=== PATIENT | female | born 1975 | race Caucasian/White ===

== ENCOUNTER 2019-02-16 19:19 | Inpatient (IN) | payer MEDICAID ==
[~2019-02-16] VITALS: Ht 152.4 cm; Wt 85.8 kg
[2019-02-16] MEDS ORDERED: SOD CHLORIDE 0.9% 1,000 ML IV STA (20:38)
[2019-02-16] MEDS ORDERED: HYDROmorphONE 1 MG/ML SYG IV STA (20:38)
[2019-02-16] MEDS ORDERED: ONDANSETRON 4 MG INJ IV STA (20:38)
[2019-02-16] MEDS ORDERED: HYDROmorphONE 2 MG/ML SYG IV STA (22:37)
[2019-02-16] MEDS ORDERED: ONDANSETRON 4 MG INJ IV PRN (23:30)
[2019-02-16] MEDS ORDERED: ACETAMINOPHEN 325 MG TAB PO PRN (23:30)
--- NOTE | 2019-02-16 23:57 | ERD ---
ER Documentation Chief Complaint Chief Complaint 10/10 LOWER BACK PAIN X 2 DAYS. HPI This is a 43-year-old male with pain is in the low back pain for 2 days. Pain is mild to moderate intensity he denies bowel or bladder incontinence but does have a history of back issues. Denies any trauma. Says she woke up and could not move essentially. She does have good motor strength, however she cannot support her weight. ROS All systems reviewed and are negative except as per history of present illness. Medications Home Meds No Active Prescriptions or Reported Meds Allergies Allergies: Coded Allergies: No Known Allergy (Unverified , 03/13/12) PMhx/Soc History of Surgery: No Anesthesia Reaction: No Hx Neurological Disorder: No Hx Respiratory Disorders: No Hx Cardiac Disorders: No Hx Psychiatric Problems: No Hx Miscellaneous Medical Probl: Yes (C SECTIONS) Hx Alcohol Use: No Hx Substance Use: No Hx Tobacco Use: No Smoking Status: Never smoker Physical Exam Vitals Vital Signs Date Temp Pulse Resp B/P (MAP) Pulse Ox O2 O2 Flow FiO2 Time Delivery Rate 02/16/19 97.7 68 19 125/73 96 Room Air 20:38 (90) 02/16/19 98.1 85 20 140/66 98 Room Air 20:01 (90) 02/16/19 98.1 88 20 154/68 98 19:22 (96) Physical Exam Const: No acute distress Head: Atraumatic Eyes: Normal Conjunctiva ENT: Normal External Ears, Nose and Mouth. Neck: Full range of motion. No meningismus. Resp: Clear to auscultation bilaterally Cardio: Regular rate and rhythm, no murmurs Abd: Soft, non tender, non distended. Normal bowel sounds Skin: No petechiae or rashes Back: No midline or flank tenderness Ext: No cyanosis, or edema Neur: Awake and alert Psych: Normal Mood and Affect Result Diagram: 02/16/19201402/16/192014 Results 24 hrs Laboratory Tests Test 02/16/19 20:15 02/16/19 20:29 02/16/19 21:13 White Blood Count 8.1 10^3/ul Red Blood Count 4.77 10^6/ul Hemoglobin 12.8 g/dl Hematocrit 39.3 % Mean Corpuscular Volume 82.4 fl Mean Corpuscular Hemoglobin 26.8 pg Mean Corpuscular 32.6 g/dl Hemoglobin Concent Red Cell Distribution Width 14.7 % Platelet Count 405 10^3/UL Mean Platelet Volume 10.6 fl Immature Granulocytes % 0.500 % Neutrophils % 58.8 % Lymphocytes % 30.6 % Monocytes % 9.0 % Eosinophils % 0.6 % Basophils % 0.5 % Nucleated Red Blood Cells % 0.0 /100WBC Immature Granulocytes # 0.040 10^3/ul Neutrophils # 4.7 10^3/ul Lymphocytes # 2.5 10^3/ul Monocytes # 0.7 10^3/ul Eosinophils # 0.1 10^3/ul Basophils # 0.0 10^3/ul Nucleated Red Blood Cells # 0.0 10^3/ul Sodium Level 141 mmol/L Potassium Level 3.5 mmol/L Chloride Level 106 mmol/L Carbon Dioxide Level 25 mmol/L Anion Gap 10 Blood Urea Nitrogen 11 mg/dl Creatinine 0.56 mg/dl Est Glomerular Filtrat > 60 mL/min Rate mL/min Glucose Level 99 mg/dl Calcium Level 9.7 mg/dl Total Bilirubin 0.5 mg/dl Direct Bilirubin 0.00 mg/dl Indirect Bilirubin 0.5 mg/dl Aspartate Amino Transf (AST/SGOT) 52 IU/L Alanine 67 IU/L Aminotransferase (ALT/SGPT) Alkaline Phosphatase 92 IU/L Total Protein 8.9 g/dl Albumin 4.7 g/dl Globulin 4.20 g/dl Albumin/Globulin Ratio 1.11 Urine Color YELLOW Urine Clarity SLIGHTLY CLOUDY Urine pH 6.0 Urine Specific [place] 1.025 Urine Ketones NEGATIVE mg/dL Urine Nitrite NEGATIVE mg/dL Urine Bilirubin NEGATIVE mg/dL Urine Urobilinogen 2+ mg/dL Urine Leukocyte Esterase NEGATIVE Gomez/ul Urine Microscopic RBC 6 /HPF Urine Microscopic WBC 1 /HPF Urine Squamous Epithelial Cells FEW /HPF Urine Bacteria FEW /HPF Urine Mucus MODERATE /HPF Urine Hemoglobin NEGATIVE mg/dL Urine Glucose NEGATIVE mg/dL Urine Total Protein NEGATIVE mg/dl POC Beta HCG, Qualitative NEGATIVE Current Medications Medications Dose Sig/Hoang Start Time Status Last (Trade) Ordered Route PRN Stop Time Admin Dose Reason Admin Sodium 1,000 ml @ Q1H STAT 02/16/19 DC 02/16/19 Chloride 1,000 mls/hr IV 20:38 02/16/19 20:45 21:37 1 mg ONCE STAT 02/16/19 DC 02/16/19 Hydromorphone IV 20:38 02/16/19 20:45 HCl 20:40 (Dilaudid) Ondansetron 4 mg ONCE STAT 02/16/19 DC 02/16/19 HCl (Zofran IV 20:38 02/16/19 20:45 Inj) 20:40 1 mg ONCE STAT 02/16/19 DC 02/16/19 Hydromorphone IV 22:37 02/16/19 23:07 HCl 22:38 (Dilaudid) Ondansetron 4 mg BRIDGE ORDER 02/16/19 HCl (Zofran PRN IV 23:30 Inj) NAUSEA/VOMITI 02/17/19 23:29 NG 650 mg ER BRIDGE 02/16/19 Acetaminophen PRN PO 23:30 (Tylenol .MILD PAIN 02/17/19 23:29 Tab) 1-3 OR TEMP Procedures/MDM Medical decision makin female with intractable back pain with central canal stenosis. Patient be admitted for intractable back pain for possible neurosurgical consult and pain control. Departure Diagnosis: Primary Impression: Back pain Back pain location: back pain in unspecified location Chronicity: unspecified Back pain laterality: unspecified Qualified Codes: M54.9 - Dorsalgia, unspecified Condition: Fair ESTRELLA MARIA Feb 16, 2019 23:57
[2019-02-17 00:28] VITALS: Ht 152.4 cm; Wt 85.8 kg
[2019-02-17] MEDS ORDERED: LORAZEPAM 2 MG INJ IV PRN (00:30)
[2019-02-17] MEDS ORDERED: ONDANSETRON 4 MG INJ IV PRN (00:30)
[2019-02-17] MEDS ORDERED: METOCLOPRAMIDE 10 MG INJ IV PRN (00:30)
[2019-02-17] MEDS ORDERED: MAGNESIUM HYDROXIDE 30ML CUP PO PRN (00:30)
[2019-02-17] MEDS ORDERED: HYDROCODONE/APAP (5/325) TAB PO PRN (00:30)
[2019-02-17] MEDS ORDERED: ALBUTEROL/IPRATROPIUM (NEB) 3 ML AMP HHN PRN (00:30)
[2019-02-17] MEDS ORDERED: ACETAMINOPHEN 325 MG TAB PO PRN (00:30)
[2019-02-17] MEDS ORDERED: NACL 0.9% 3 ML SYG IV SCH (00:30)
[2019-02-17] MEDS ORDERED: DOCUSATE SODIUM 100 MG CAP PO PRN (00:30)
[2019-02-17] MEDS ORDERED: hydrALAzine 20 MG INJ IV PRN (00:30)
[2019-02-17] MEDS ORDERED: NITROGLYCERIN (SL) 0.4 MG TAB SL PRN (00:30)
[2019-02-17 01:01] VITALS: BP 132/63; PULSE 63; RESP 18
[2019-02-17] MEDS: morphine 2 MG INJ IV PRN ×2 (01:07→08:42)
[2019-02-17] MEDS: SOD CHLORIDE 0.45% 1,000 ML IV SCH ×2 (01:07→13:21)
--- NOTE | 2019-02-17 02:43 | HP ---
DATE OF ADMISSION: 02/16/2019 IDENTIFICATION: This is a 43-year-old female. CHIEF COMPLAINT: Low back pain. HISTORY OF PRESENT ILLNESS: A 43-year-old female with no significant past medical history other than , who has been complaining of low back pain, symptoms began 2 days ago. She denies any tra swathi to the area. Apparently, when she woke up 2 days ago, she had difficulty moving. She still has good sensation and denies any bowel or bladder incontinence. She does have a history of low back shira n in the past. When she came in today to the ER, she had an imaging study performed. CT abdomen and pelvis that showed signs of 2 cysts in the left adnexa measuring about 5 cm. Uterus is anteverted a nd uterine fundus is tethered to the anterior abdominal wall, but more importantly, there were signs of degenerative disk disease in the lower lumbar spine with a large disk herniation at L4-L5 that res ults in severe central canal stenosis with compression of the thecal sac and an MRI of the lumbar spi ne has been ordered and is pending for further assessment. PAST MEDICAL HISTORY: As above. ALLERGIES: NO KNOWN DRUG ALLERGIES. HOME MEDICATIONS: Apparently none. PAST SURGICAL HISTORY: . SOCIAL HISTORY: Negative for smoking or drinking, or IV drug abuse. PHYSICAL EXAMINATION: VITAL SIGNS: T-max afebrile, pulse 88 to 68, respirations 20 to 19, blood pressure is 125 to 154 sys tolic over 73 to diastolic, saturating at 98% room air. GENERAL: The patient is lying in bed, answering questions appropriately, in mild distress. HEENT: Pupils equal, round, react to light. Extraocular muscles intact. NECK: Supple, no thyromegaly. LUNGS: Clear to auscultation bilaterally. CARDIOVASCULAR: S1, S2 heard. No rubs or gallops. ABDOMEN: Soft, nontender, nondistended. Normal bowel sounds. No rebound or guarding. MUSCULOSKELETAL: Decreased range of motion of her bilateral lower extremities secondary to pain. NEUROLOGIC: No apparent focal deficits. Sensation appears to be intact. Gait was not assessed. LABORATORIES: CBC is normal. Comprehensive metabolic panel was normal. We mentioned the imaging st udy results. Her UA shows negative leukocyte esterase, negative nitrites. ASSESSMENT AND PLAN: A 43-year-old female coming in with low back pain for 2 days with signs of disk herniation at L4-L5 causing severe central canal stenosis and compression of thecal sac. 1. Low back pain, again secondary to disk herniation L4-L5 region, so we will admit the patient. Pa in control medications, get PT and OT consult. Check TSH, A1c, lipid panel. Continue low-dose IV fl uids. 2. History of in the past. No present issues. Monitor for now. 3. Deep venous thrombosis prophylaxis, heparin subQ. Dictated By: NIC DAVIS/AIDE Conf#: [id number] DID#: [id number]
[2019-02-17 08:03] VITALS: BP 118/58; PULSE 57; RESP 20
[2019-02-17] MEDS: HEPARIN 5,000 UNIT/1 ML VIAL SC SCH ×2 (08:47→21:25)
[2019-02-17 13:54] VITALS: BP 122/60; PULSE 62; RESP 20
--- NOTE | 2019-02-17 14:03 | PN ---
Date/Time of Note Date/Time of Note DATE: 02/17/19 TIME: 14:02 Assessment/Plan VTE Prophylaxis Risk score (from Nsg)>0 risk: 1 SCD applied (from Nsg): Yes Pharmacological prophylaxis: heparin Lines/Catheters IV Catheter Type (from [facility]): Peripheral IV Assessment/Plan Hospital Course SUBJECTIVE: Continues to complain of lower back pain and pelvic pain. Denies any loss of sensation in the bilateral lower extremities. OBJECTIVE: Physical Exam General: Obese, 43 year-old female lying in bed in no apparent distress. HEENT: Normocephalic, atraumatic. Eyes: Anicteric sclerae, conjunctivae clear. ENT: Nasal septum midline, oral mucosa moist. Neck supple. Respiratory: Bilaterally clear breath sounds. No use of accessory muscles of respiration. No adventitious breath sounds. Cardiovascular: S1, S2 heard. Regular rate and rhythm. Abdomen: Soft and nondistended. Diffuse tenderness. Bowel sounds positive in all 4 quadrants. Genitourinary: Deferred. Extremities: No cyanosis, no clubbing, no edema. Peripheral pulses palpable. Neurologic: Cranial nerves II through XII grossly intact. The patient is awake, alert, and oriented. Equal strength in bilateral lower extremities. Skin: Normal skin turgor. No skin rashes. Labs & Vitals per chart ASSESSMENT & PLAN This is a 43-year-old female who denies any significant past medical history who is obese who came to the emergency room with chief complaint of lower back pain with CT of the abdomen and pelvis showing a large disc herniation at L4-L5 with resultant severe central canal stenosis with compression of thecal sac. 1. Low back pain. L4-L5 large disc herniation evident on CT scan. Obtain MRI of the lumbar spine. Continue pain control. 2. Obesity. BMI 37 kg/m. Advised weight reduction. 3. Fluids, electrolytes, and nutrition. Low-cholesterol diet. 4. DVT prophylaxis. Subcutaneous heparin. 5. Plan. Continue pain control. Obtain MRI of the lumbar spine. The patient was seen in collaboration with Dr. Amaro. Result Diagram: 02/16/19201402/16/192014 Results 24hrs Laboratory Tests Test 02/16/19 20:15 02/16/19 20:29 02/16/19 21:13 02/17/19 00:01 White Blood Count 8.1 Red Blood Count 4.77 Hemoglobin 12.8 Hematocrit 39.3 Mean Corpuscular 82.4 Volume Mean Corpuscular 26.8 L Hemoglobin Mean Corpuscular 32.6 Hemoglobin Concent Red Cell 14.7 H Distribution Width Platelet Count 405 Mean Platelet 10.6 H Volume Immature 0.500 H Granulocytes % Neutrophils % 58.8 Lymphocytes % 30.6 Monocytes % 9.0 Eosinophils % 0.6 Basophils % 0.5 Nucleated Red 0.0 Blood Cells % Immature 0.040 H Granulocytes # Neutrophils # 4.7 Lymphocytes # 2.5 Monocytes # 0.7 Eosinophils # 0.1 Basophils # 0.0 Nucleated Red 0.0 Blood Cells # Sodium Level 141 Potassium Level 3.5 Chloride Level 106 Carbon Dioxide 25 Level Anion Gap 10 Blood Urea 11 Nitrogen Creatinine 0.56 Est Glomerular > 60 Filtrat Rate mL/min Glucose Level 99 Calcium Level 9.7 Total Bilirubin 0.5 Direct Bilirubin 0.00 Indirect Bilirubin 0.5 Aspartate Amino 52 H Transf (AST/SGOT) Alanine 67 Aminotransferase ( ALT/SGPT) Alkaline 92 Phosphatase Total Protein 8.9 H Albumin 4.7 Globulin 4.20 H Albumin/Globulin 1.11 Ratio Urine Color YELLOW Urine Clarity SLIGHTLY CLOUDY A Urine pH 6.0 Urine Specific 1.025 [place] Urine Ketones NEGATIVE Urine Nitrite NEGATIVE Urine Bilirubin NEGATIVE Urine Urobilinogen 2+ H Urine Leukocyte NEGATIVE Esterase Urine Microscopic 6 H RBC Urine Microscopic 1 WBC Urine Squamous FEW Epithelial Cells Urine Bacteria FEW A Urine Mucus MODERATE Urine Hemoglobin NEGATIVE Urine Glucose NEGATIVE Urine Total NEGATIVE Protein POC Beta HCG, NEGATIVE Qualitative Free Thyroxine 0.88 Exam/Review of Systems Exam Vitals Vital Signs Date Temp Pulse Resp B/P (MAP) Pulse Ox O2 O2 Flow FiO2 Time Delivery Rate 02/17/19 98.5 62 20 122/60 93 13:54 (80) 02/17/19 Room Air 00:05 Intake and Output 02/16/19 02/16/19 02/17/19 1515:00 23:00 07:00 IntakeIntake Total 375 ml BalanceBalance 375 ml Results Results 24hrs Laboratory Tests Test 02/16/19 20:15 02/16/19 20:29 02/16/19 21:13 02/17/19 00:01 White Blood Count 8.1 Red Blood Count 4.77 Hemoglobin 12.8 Hematocrit 39.3 Mean Corpuscular 82.4 Volume Mean Corpuscular 26.8 L Hemoglobin Mean Corpuscular 32.6 Hemoglobin Concent Red Cell 14.7 H Distribution Width Platelet Count 405 Mean Platelet 10.6 H Volume Immature 0.500 H Granulocytes % Neutrophils % 58.8 Lymphocytes % 30.6 Monocytes % 9.0 Eosinophils % 0.6 Basophils % 0.5 Nucleated Red 0.0 Blood Cells % Immature 0.040 H Granulocytes # Neutrophils # 4.7 Lymphocytes # 2.5 Monocytes # 0.7 Eosinophils # 0.1 Basophils # 0.0 Nucleated Red 0.0 Blood Cells # Sodium Level 141 Potassium Level 3.5 Chloride Level 106 Carbon Dioxide 25 Level Anion Gap 10 Blood Urea 11 Nitrogen Creatinine 0.56 Est Glomerular > 60 Filtrat Rate mL/min Glucose Level 99 Calcium Level 9.7 Total Bilirubin 0.5 Direct Bilirubin 0.00 Indirect Bilirubin 0.5 Aspartate Amino 52 H Transf (AST/SGOT) Alanine 67 Aminotransferase ( ALT/SGPT) Alkaline 92 Phosphatase Total Protein 8.9 H Albumin 4.7 Globulin 4.20 H Albumin/Globulin 1.11 Ratio Urine Color YELLOW Urine Clarity SLIGHTLY CLOUDY A Urine pH 6.0 Urine Specific 1.025 [place] Urine Ketones NEGATIVE Urine Nitrite NEGATIVE Urine Bilirubin NEGATIVE Urine Urobilinogen 2+ H Urine Leukocyte NEGATIVE Esterase Urine Microscopic 6 H RBC Urine Microscopic 1 WBC Urine Squamous FEW Epithelial Cells Urine Bacteria FEW A Urine Mucus MODERATE Urine Hemoglobin NEGATIVE Urine Glucose NEGATIVE Urine Total NEGATIVE Protein POC Beta HCG, NEGATIVE Qualitative Free Thyroxine 0.88 Medications Medication Current Medications IV Flush (NS 3 ml) 3 ml PER PROTOCOL IV ; Start 02/17/19 at 00:30 Ondansetron HCl (Zofran Inj) 4 mg Q6H PRN IV NAUSEA/VOMITING; Start 02/17/19 at 00:30 Metoclopramide HCl (Reglan) 10 mg Q6H PRN IV NAUSEA/VOMITING; Start 02/17/19 at 00:30 Acetaminophen (Tylenol Tab) 650 mg Q6H PRN PO .PAIN 1-3 OR TEMP; Start 02/17/19 at 00:30 Acetaminophen/ Hydrocodone Bitart ([place] (5/325)) 1 tab Q6H PRN PO .MOD PAIN 4- 6; Start 02/17/19 at 00:30 Acetaminophen/ Hydrocodone Bitart ([place] (5/325)) 2 tab Q6H PRN PO .SEVERE PAIN 7-10; Start 02/17/19 at 00:30 Morphine Sulfate (morphine) 2 mg Q4H PRN IV .SEVERE PAIN 7-10 Last administered on 02/17/19at 08:42; Admin Dose 2 MG; Start 02/17/19 at 00:30 Docusate Sodium (Colace) 100 mg Q12H PRN PO .CONSTIPATION Last administered on 02/17/19 01:07; Admin Dose 100 MG; Start 02/17/19 at 00:30 Magnesium Hydroxide (Milk Of Mag) 30 ml DAILY PRN PO .CONSTIPATION; Start 02/17/19 at 00:30 Heparin Sodium (Porcine) (Heparin (5000 Units/1ml)) 5,000 unit Q12 SC Last administered on 02/17/19at 08:47; Admin Dose 5,000 UNIT; Start 02/17/19 at 09:00 Sodium Chloride 1,000 ml @ 75 mls/hr [id number] IV Last administered on 02/17/19 01:07; Admin Dose 75 MLS/HR; Start 02/17/19 at 00:01 Lorazepam (Ativan) 0.5 mg Q6H PRN IV ANXIETY; Start 02/17/19 at 00:30 Albuterol/ Ipratropium (Duoneb) 3 ml Q4H RESP THERAPY PRN HHN SHORTNESS OF BREATH; Start 02/17/19 at 00:30 Hydralazine HCl (Apresoline) 10 mg Q6H PRN IV ELEVATED BLOOD PRESSURE; Start 02/17/19 at 00:30 Clonidine (Catapres) 0.1 mg Q6H PRN PO ELEVATED BLOOD PRESSURE; Start 02/17/19 at 00:30 Nitroglycerin (Nitroglycerin (Sl Tab) 0.4 Mg) 1 tab Q5M PRN SL ANGINA; Start 02/17/19 at 00:30 NAVDEEP CRABTREE NP Feb 17, 2019 14:03
[2019-02-17] MEDS ORDERED: BISACODYL (EC) 5 MG TAB PO PRN (14:30)
[2019-02-17] MEDS: HYDROCODONE/APAP (5/325) TAB PO PRN (14:53)
[2019-02-17 19:55] VITALS: BP 93/53; PULSE 61; RESP 18
[2019-02-17] MEDS: POLYETHYLENE GLYCOL 17 GM PACKET PO SCH (21:23)
[2019-02-18 01:23] VITALS: BP 122/71; PULSE 61; RESP 18
[2019-02-18 07:45] VITALS: BP 113/55; PULSE 63; RESP 20
[2019-02-18] MEDS ORDERED: METHYLPREDNISOLONE (MEDROL) DOSE PACK PO SCH (10:30)
[2019-02-18] MEDS ORDERED: METHYLPREDNISOLONE 4 MG TAB PO SCH (10:30)
--- NOTE | 2019-02-18 10:35 | CONS ---
Assessment/Plan Assessment/Plan Assessment/Plan (Daily) Diagnosis: - Herniated nucleus pulposus A/P: 43 year old with pain likely due to a herniated L4/5 paracentral disc that is causing neuroforaminal stenosis, but is certainly not causing central canal stenosis of any clinically relevant amount. She most certainly does not have cauda equina syndrome. At her young age and given that this is not causing any urgent symptoms or irreversible problems, I recommend conservative management for now. - Medrol dose pack - Physical therapy - Will follow-up with her in two weeks as an outpatient Consultation Date/Type/Reason Admit Date/Time Feb 16, 2019 at 23:29 Date of Consultation: Feb 18, 2019 Type of Consult Neurosurgery Reason for Consultation Query Cauda Equina syndrome Date/Time of Note DATE: 02/18/19 TIME: :19 Hx of Present Illness 43 year old woman who has had significant low back pain and right hip pain for the past two days. This has started suddenly and has never happened before. There was some report of difficulty with urination and constipation, however the patient denies both of these complaints. She denies any weakness or numbness. Past Medical History Home Meds No Active Prescriptions or Reported Meds Medications Current Medications IV Flush (NS 3 ml) 3 ml PER PROTOCOL IV ; Start 02/17/19 at 00:30 Ondansetron HCl (Zofran Inj) 4 mg Q6H PRN IV NAUSEA/VOMITING Last administered on 02/17/19at 14:53; Admin Dose 4 MG; Start 02/17/19 at 00:30 Metoclopramide HCl (Reglan) 10 mg Q6H PRN IV NAUSEA/VOMITING; Start 02/17/19 at 00:30 Acetaminophen (Tylenol Tab) 650 mg Q6H PRN PO .PAIN 1-3 OR TEMP; Start 02/17/19 at 00:30 Acetaminophen/ Hydrocodone Bitart ([place] (5/325)) 1 tab Q6H PRN PO .MOD PAIN 4- 6 Last administered on 02/18/19at 08:00; Admin Dose 1 TAB; Start 02/17/19 at 00:30 Acetaminophen/ Hydrocodone Bitart ([place] (5/325)) 2 tab Q6H PRN PO .SEVERE PAIN 7-10 Last administered on 02/17/19at 14:53; Admin Dose 2 TAB; Start 02/17/19 at 00:30 Morphine Sulfate (morphine) 2 mg Q4H PRN IV .SEVERE PAIN 7-10 Last administered on 02/17/19at 08:42; Admin Dose 2 MG; Start 02/17/19 at 00:30 Docusate Sodium (Colace) 100 mg Q12H PRN PO .CONSTIPATION Last administered on 02/17/19at 01:07; Admin Dose 100 MG; Start 02/17/19 at 00:30 Magnesium Hydroxide (Milk Of Mag) 30 ml DAILY PRN PO .CONSTIPATION; Start 02/17/19 at 00:30 Heparin Sodium (Porcine) (Heparin (5000 Units/1ml)) 5,000 unit Q12 SC Last administered on 02/17/19at 21:25; Admin Dose 5,000 UNIT; Start 02/17/19 at 09:00 Lorazepam (Ativan) 0.5 mg Q6H PRN IV ANXIETY; Start 02/17/19 at 00:30 Albuterol/ Ipratropium (Duoneb) 3 ml Q4H RESP THERAPY PRN HHN SHORTNESS OF BREATH; Start 02/17/19 at 00:30 Hydralazine HCl (Apresoline) 10 mg Q6H PRN IV ELEVATED BLOOD PRESSURE; Start 02/17/19 at 00:30 Clonidine (Catapres) 0.1 mg Q6H PRN PO ELEVATED BLOOD PRESSURE; Start 02/17/19 at 00:30 Nitroglycerin (Nitroglycerin (Sl Tab) 0.4 Mg) 1 tab Q5M PRN SL ANGINA; Start 02/17/19 at 00:30 Polyethylene Glycol (Miralax) 17 gm BID PO Last administered on 02/17/19at 21:23; Admin Dose 17 GM; Start 02/17/19 at 21:00 Bisacodyl (Dulcolax) 10 mg DAILY PRN PO CONSTIPATION; Start 02/17/19 at 14:30 Allergies: Coded Allergies: No Known Allergy (Unverified , 03/13/12) Social History Smoking Status: Never smoker Exam/Review of Systems Exam Vitals Vital Signs Date Temp Pulse Resp B/P (MAP) Pulse Ox O2 O2 Flow FiO2 Time Delivery Rate 02/18/19 98.4 63 20 113/55 93 07:45 (74) 02/17/19 Room Air 00:05 Intake and Output 02/17/19 02/17/19 02/18/19 1515:00 23:00 07:00 IntakeIntake Total 1465 ml 240 ml 600 ml BalanceBalance 1465 ml 240 ml 600 ml Exam 5/5 strength no numbness or saddle anesthesia normal rectal sensation and tone + R straight leg raise test with high and low back pain Results Result Diagram: 02/18/19 0439 02/18/19 0439 Results 24hrs Laboratory Tests Test 02/18/19 04:39 White Blood Count 7.9 Red Blood Count 4.62 Hemoglobin 12.4 Hematocrit 37.8 Mean Corpuscular Volume 81.8 L Mean Corpuscular Hemoglobin 26.8 L Mean Corpuscular Hemoglobin Concent 32.8 Red Cell Distribution Width 14.8 H Platelet Count 343 Mean Platelet Volume 10.6 H Immature Granulocytes % 0.500 H Neutrophils % 62.9 Lymphocytes % 27.4 Monocytes % 7.6 Eosinophils % 1.1 Basophils % 0.5 Nucleated Red Blood Cells % 0.0 Immature Granulocytes # 0.040 H Neutrophils # 4.9 Lymphocytes # 2.2 Monocytes # 0.6 Eosinophils # 0.1 Basophils # 0.0 Nucleated Red Blood Cells # 0.0 Sodium Level 140 Potassium Level 3.9 Chloride Level 105 Carbon Dioxide Level 25 Anion Gap 10 Blood Urea Nitrogen 9 Creatinine 0.51 Est Glomerular Filtrat Rate mL/min > 60 Glucose Level 86 Hemoglobin A1c 5.7 Calcium Level 9.3 Phosphorus Level 5.2 H Magnesium Level 2.0 Triglycerides Level 108 Cholesterol Level 178 LDL Cholesterol, Calculated 110 HDL Cholesterol 46 Cholesterol/HDL Ratio 3.8 Thyroid Stimulating Hormone (TSH) 1.550 Imaging Imaging Right paracentral disc herniation at L4/5 producing only MILD central stenosis. Of note the radiology report notes moderate to severe stenosis, but this is simply not present - there is no compression of the sacral nerve roots at all. I have discussed this with the patient and shown her the images. Medications Medication Current Medications IV Flush (NS 3 ml) 3 ml PER PROTOCOL IV ; Start 02/17/19 at 00:30 Ondansetron HCl (Zofran Inj) 4 mg Q6H PRN IV NAUSEA/VOMITING Last administered on 02/17/19at 14:53; Admin Dose 4 MG; Start 02/17/19 at 00:30 Metoclopramide HCl (Reglan) 10 mg Q6H PRN IV NAUSEA/VOMITING; Start 02/17/19 at 00:30 Acetaminophen (Tylenol Tab) 650 mg Q6H PRN PO .PAIN 1-3 OR TEMP; Start 02/17/19 at 00:30 Acetaminophen/ Hydrocodone Bitart ([place] (5/325)) 1 tab Q6H PRN PO .MOD PAIN 4- 6 Last administered on 02/18/19at 08:00; Admin Dose 1 TAB; Start 02/17/19 at 00:30 Acetaminophen/ Hydrocodone Bitart ([place] (5/325)) 2 tab Q6H PRN PO .SEVERE PAIN 7-10 Last administered on 02/17/19at 14:53; Admin Dose 2 TAB; Start 02/17/19 at 00:30 Morphine Sulfate (morphine) 2 mg Q4H PRN IV .SEVERE PAIN 7-10 Last administered on 02/17/19 08:42; Admin Dose 2 MG; Start 02/17/19 at 00:30 Docusate Sodium (Colace) 100 mg Q12H PRN PO .CONSTIPATION Last administered on 02/17/19at 01:07; Admin Dose 100 MG; Start 02/17/19 at 00:30 Magnesium Hydroxide (Milk Of Mag) 30 ml DAILY PRN PO .CONSTIPATION; Start 02/17/19 at 00:30 Heparin Sodium (Porcine) (Heparin (5000 Units/1ml)) 5,000 unit Q12 SC Last administered on 02/17/19at 21:25; Admin Dose 5,000 UNIT; Start 02/17/19 at 09:00 Lorazepam (Ativan) 0.5 mg Q6H PRN IV ANXIETY; Start 02/17/19 at 00:30 Albuterol/ Ipratropium (Duoneb) 3 ml Q4H RESP THERAPY PRN HHN SHORTNESS OF BREATH; Start 02/17/19 at 00:30 Hydralazine HCl (Apresoline) 10 mg Q6H PRN IV ELEVATED BLOOD PRESSURE; Start 02/17/19 at 00:30 Clonidine (Catapres) 0.1 mg Q6H PRN PO ELEVATED BLOOD PRESSURE; Start 02/17/19 at 00:30 Nitroglycerin (Nitroglycerin (Sl Tab) 0.4 Mg) 1 tab Q5M PRN SL ANGINA; Start 6/10/19 at 00:30 Polyethylene Glycol (Miralax) 17 gm BID PO Last administered on 02/17/19at 21:23; Admin Dose 17 GM; Start 02/17/19 at 21:00 Bisacodyl (Dulcolax) 10 mg DAILY PRN PO CONSTIPATION; Start 02/17/19 at 14:30 MAC BACON MD Feb 18, 2019 10:29
--- NOTE | 2019-02-18 10:40 | PN ---
Date/Time of Note Date/Time of Note DATE: 02/18/19 TIME: 10:39 Assessment/Plan VTE Prophylaxis Risk score (from Nsg)>0 risk: 2 SCD applied (from Nsg): Yes Pharmacological prophylaxis: heparin Lines/Catheters IV Catheter Type (from Nrsg): Peripheral IV Assessment/Plan Hospital Course SUBJECTIVE: Continues to complain of lower back pain and pelvic pain. Denies any loss of sensation in the bilateral lower extremities. OBJECTIVE: Physical Exam General: Obese, 43 year-old female lying in bed in no apparent distress. HEENT: Normocephalic, atraumatic. Eyes: Anicteric sclerae, conjunctivae clear. ENT: Nasal septum midline, oral mucosa moist. Neck supple. Respiratory: Bilaterally clear breath sounds. No use of accessory muscles of respiration. No adventitious breath sounds. Cardiovascular: S1, S2 heard. Regular rate and rhythm. Abdomen: Soft and nondistended. Diffuse tenderness. Bowel sounds positive in all 4 quadrants. Genitourinary: Normal rectal tone (examined with a female hotel superintendent). Extremities: No cyanosis, no clubbing, no edema. Peripheral pulses palpable. Neurologic: Cranial nerves II through XII grossly intact. The patient is awake, alert, and oriented. Equal strength in bilateral lower extremities. Skin: Normal skin turgor. No skin rashes. Labs & Vitals per chart ASSESSMENT & PLAN This is a 43-year-old female who denies any significant past medical history who is obese who came to the emergency room with chief complaint of lower back pain with CT of the abdomen and pelvis showing a large disc herniation at L4-L5 with resultant severe central canal stenosis with compression of thecal sac. 1. Low back pain. L4-L5 large disc herniation evident on CT scan. Radiologist suggested moderate to severe central canal stenosis at L4-L5. Status post evaluation by neurosurgery with no evidence of cauda equina syndrome and no evidence of any clinically relevant central canal stenosis. Recommended steroid therapy and physical therapy along with pain control. Continue pain control. 2. Enlarged urinary bladder on imaging studies. Post void residual around 300 mL. Status post Luz catheter insertion that drained only to 250 mL of urine. 3. Obesity. BMI 37 kg/m. Advised weight reduction. 4. Fluids, electrolytes, and nutrition. Low-cholesterol diet. 5. DVT prophylaxis. Subcutaneous heparin. 6. Plan. Continue pain control. Start Medrol pack. Physical therapy evaluation. The patient was seen in collaboration with Dr. Amaro. Result Diagram: 02/18/19 0439 02/18/19 0439 Results 24hrs Laboratory Tests Test 02/18/19 04:39 White Blood Count 7.9 Red Blood Count 4.62 Hemoglobin 12.4 Hematocrit 37.8 Mean Corpuscular Volume 81.8 L Mean Corpuscular Hemoglobin 26.8 L Mean Corpuscular Hemoglobin Concent 32.8 Red Cell Distribution Width 14.8 H Platelet Count 343 Mean Platelet Volume 10.6 H Immature Granulocytes % 0.500 H Neutrophils % 62.9 Lymphocytes % 27.4 Monocytes % 7.6 Eosinophils % 1.1 Basophils % 0.5 Nucleated Red Blood Cells % 0.0 Immature Granulocytes # 0.040 H Neutrophils # 4.9 Lymphocytes # 2.2 Monocytes # 0.6 Eosinophils # 0.1 Basophils # 0.0 Nucleated Red Blood Cells # 0.0 Sodium Level 140 Potassium Level 3.9 Chloride Level 105 Carbon Dioxide Level 25 Anion Gap 10 Blood Urea Nitrogen 9 Creatinine 0.51 Est Glomerular Filtrat Rate mL/min > 60 Glucose Level 86 Hemoglobin A1c 5.7 Calcium Level 9.3 Phosphorus Level 5.2 H Magnesium Level 2.0 Triglycerides Level 108 Cholesterol Level 178 LDL Cholesterol, Calculated 110 HDL Cholesterol 46 Cholesterol/HDL Ratio 3.8 Thyroid Stimulating Hormone (TSH) 1.550 Exam/Review of Systems Exam Vitals Vital Signs Date Temp Pulse Resp B/P (MAP) Pulse Ox O2 O2 Flow FiO2 Time Delivery Rate 02/18/19 98.4 63 20 113/55 93 07:45 (74) 02/17/19 Room Air 00:05 Intake and Output 02/17/19 02/17/19 02/18/19 1515:00 23:00 07:00 IntakeIntake Total 1465 ml 240 ml 600 ml BalanceBalance 1465 ml 240 ml 600 ml Results Results 24hrs Laboratory Tests Test 02/18/19 04:39 White Blood Count 7.9 Red Blood Count 4.62 Hemoglobin 12.4 Hematocrit 37.8 Mean Corpuscular Volume 81.8 L Mean Corpuscular Hemoglobin 26.8 L Mean Corpuscular Hemoglobin Concent 32.8 Red Cell Distribution Width 14.8 H Platelet Count 343 Mean Platelet Volume 10.6 H Immature Granulocytes % 0.500 H Neutrophils % 62.9 Lymphocytes % 27.4 Monocytes % 7.6 Eosinophils % 1.1 Basophils % 0.5 Nucleated Red Blood Cells % 0.0 Immature Granulocytes # 0.040 H Neutrophils # 4.9 Lymphocytes # 2.2 Monocytes # 0.6 Eosinophils # 0.1 Basophils # 0.0 Nucleated Red Blood Cells # 0.0 Sodium Level 140 Potassium Level 3.9 Chloride Level 105 Carbon Dioxide Level 25 Anion Gap 10 Blood Urea Nitrogen 9 Creatinine 0.51 Est Glomerular Filtrat Rate mL/min > 60 Glucose Level 86 Hemoglobin A1c 5.7 Calcium Level 9.3 Phosphorus Level 5.2 H Magnesium Level 2.0 Triglycerides Level 108 Cholesterol Level 178 LDL Cholesterol, Calculated 110 HDL Cholesterol 46 Cholesterol/HDL Ratio 3.8 Thyroid Stimulating Hormone (TSH) 1.550 Medications Medication Current Medications IV Flush (NS 3 ml) 3 ml PER PROTOCOL IV ; Start 02/17/19 at 00:30 Ondansetron HCl (Zofran Inj) 4 mg Q6H PRN IV NAUSEA/VOMITING Last administered on 02/17/19 14:53; Admin Dose 4 MG; Start 02/17/19 at 00:30 Metoclopramide HCl (Reglan) 10 mg Q6H PRN IV NAUSEA/VOMITING; Start 02/17/19 at 00:30 Acetaminophen (Tylenol Tab) 650 mg Q6H PRN PO .PAIN 1-3 OR TEMP; Start 02/17/19 at 00:30 Acetaminophen/ Hydrocodone Bitart ([place] (5/325)) 1 tab Q6H PRN PO .MOD PAIN 4- 6 Last administered on 02/18/19at 08:00; Admin Dose 1 TAB; Start 02/17/19 at 00:30 Acetaminophen/ Hydrocodone Bitart ([place] (5/325)) 2 tab Q6H PRN PO .SEVERE PAIN 7-10 Last administered on 02/17/19 14:53; Admin Dose 2 TAB; Start 02/17/19 at 00:30 Morphine Sulfate (morphine) 2 mg Q4H PRN IV .SEVERE PAIN 7-10 Last administered on 02/17/19 08:42; Admin Dose 2 MG; Start 02/17/19 at 00:30 Docusate Sodium (Colace) 100 mg Q12H PRN PO .CONSTIPATION Last administered on 02/17/19 01:07; Admin Dose 100 MG; Start 02/17/19 at 00:30 Magnesium Hydroxide (Milk Of Mag) 30 ml DAILY PRN PO .CONSTIPATION; Start 02/17/19 at 00:30 Heparin Sodium (Porcine) (Heparin (5000 Units/1ml)) 5,000 unit Q12 SC Last administered on 02/17/19at 21:25; Admin Dose 5,000 UNIT; Start 02/17/19 at 09:00 Lorazepam (Ativan) 0.5 mg Q6H PRN IV ANXIETY; Start 02/17/19 at 00:30 Albuterol/ Ipratropium (Duoneb) 3 ml Q4H RESP THERAPY PRN HHN SHORTNESS OF BREATH; Start 02/17/19 at 00:30 Hydralazine HCl (Apresoline) 10 mg Q6H PRN IV ELEVATED BLOOD PRESSURE; Start 02/17/19 at 00:30 Clonidine (Catapres) 0.1 mg Q6H PRN PO ELEVATED BLOOD PRESSURE; Start 02/17/19 at 00:30 Nitroglycerin (Nitroglycerin (Sl Tab) 0.4 Mg) 1 tab Q5M PRN SL ANGINA; Start 02/17/19 at 00:30 Polyethylene Glycol (Miralax) 17 gm BID PO Last administered on 02/17/19at 21:23; Admin Dose 17 GM; Start 02/17/19 at 21:00 Bisacodyl (Dulcolax) 10 mg DAILY PRN PO CONSTIPATION; Start 02/17/19 at 14:30 Methylprednisolone (Medrol Dose Pack) ay 1: 24 mg on day 1, administe... STD DOSE PACK PO ; Start 02/18/19 at 10:30; Stop 02/23/19 at 07:01 Methylprednisolone (Medrol) 4 mg AC BREAKFAST PO ; Start 02/19/19 at 07:00; Stop 02/23/19 at 07:01 Methylprednisolone (Medrol) 4 mg PC LUNCH PO ; Start 02/19/19 at 13:00; Stop 02/21/19 at 13:01 Methylprednisolone (Medrol) 4 mg PC DINNER PO ; Start 02/19/19 at 19:00; Stop 02/20/19 at 19:01 Methylprednisolone (Medrol) 8 mg HS PO ; Start 02/19/19 at 21:00; Stop 02/19/19 at 21:01 Methylprednisolone (Medrol) 4 mg HS PO ; Start 02/20/19 at 21:00; Stop 02/22/19 at 21:01 Methylprednisolone (Medrol) 24 mg ONCE PO ; Start 02/18/19 at 10:30; Stop 02/18/19 at 23:45 NAVDEEP CRABTREE NP Feb 18, 2019 10:40
[2019-02-18] MEDS: FAMOTIDINE 20 MG TAB PO SCH ×2 (12:48→20:23)
[2019-02-18] MEDS: POLYETHYLENE GLYCOL 17 GM PACKET PO SCH ×2 (12:48→20:23)
[2019-02-18] MEDS: HEPARIN 5,000 UNIT/1 ML VIAL SC SCH ×2 (12:49→20:24)
[2019-02-18 14:30] VITALS: BP 113/58; PULSE 57; RESP 20
[2019-02-18] MEDS: HYDROCODONE/APAP (5/325) TAB PO PRN (19:17)
[2019-02-18 19:49] VITALS: BP 118/67; PULSE 72; RESP 18
[2019-02-19 01:33] VITALS: BP 120/58; PULSE 58; RESP 18
--- NOTE | 2019-02-19 05:47 | PN ---
Date/Time of Note Date/Time of Note DATE: 02/19/19 TIME: 05:46 Assessment/Plan VTE Prophylaxis Risk score (from Ns)>0 risk: 1 SCD applied (from Ns): No SCD contraindicated: other Pharmacological prophylaxis: heparin Lines/Catheters IV Catheter Type (from [facility]): Saline Lock Assessment/Plan Hospital Course SUBJECTIVE: Continues to complain of lower back pain and pelvic pain. Denies any loss of sensation in the bilateral lower extremities. OBJECTIVE: Physical Exam General: Obese, 43 year-old female lying in bed in no apparent distress. HEENT: Normocephalic, atraumatic. Eyes: Anicteric sclerae, conjunctivae clear. ENT: Nasal septum midline, oral mucosa moist. Neck supple. Respiratory: Bilaterally clear breath sounds. No use of accessory muscles of respiration. No adventitious breath sounds. Cardiovascular: S1, S2 heard. Regular rate and rhythm. Abdomen: Soft and nondistended. Diffuse tenderness. Bowel sounds positive in all 4 quadrants. Genitourinary: Deferred. Extremities: No cyanosis, no clubbing, no edema. Peripheral pulses palpable. Neurologic: Cranial nerves II through XII grossly intact. The patient is awake, alert, and oriented. Equal strength in bilateral lower extremities. Skin: Normal skin turgor. No skin rashes. Labs & Vitals per chart ASSESSMENT & PLAN This is a 43-year-old female who denies any significant past medical history who is obese who came to the emergency room with chief complaint of lower back pain with CT of the abdomen and pelvis showing a large disc herniation at L4-L5 with resultant severe central canal stenosis with compression of thecal sac. 1. Low back pain. L4-L5 large disc herniation evident on CT scan. Radiologist suggested moderate to severe central canal stenosis at L4-L5. Status post evaluation by neurosurgery with no evidence of cauda equina syndrome and no evidence of any clinically relevant central canal stenosis. Recommended steroid therapy and physical therapy along with pain control. Continue pain control. 2. Enlarged urinary bladder on imaging studies. Post void residual around 300 mL. Status post Luz catheter insertion that drained only to 250 mL of urine. 3. Obesity. BMI 37 kg/m. Advised weight reduction. 4. Fluids, electrolytes, and nutrition. Low-cholesterol diet. 5. DVT prophylaxis. Subcutaneous heparin. 6. Plan. Continue pain control. Continue Medrol pack. Physical therapy evaluation. The patient was seen in collaboration with Dr. Amaro. Result Diagram: 02/18/19 0439 02/18/19438 Exam/Review of Systems Exam Vitals Vital Signs Date Temp Pulse Resp B/P (MAP) Pulse Ox O2 O2 Flow FiO2 Time Delivery Rate 02/19/19 98.4 58 18 120/58 95 01:33 (78) 02/17/19 Room Air 00:05 Intake and Output 02/18/19 02/18/19 02/19/19 1515:00 23:00 07:00 IntakeIntake Total 840 ml 200 ml BalanceBalance 840 ml 200 ml Medications Medication Current Medications IV Flush (NS 3 ml) 3 ml PER PROTOCOL IV ; Start 02/17/19 at 00:30 Ondansetron HCl (Zofran Inj) 4 mg Q6H PRN IV NAUSEA/VOMITING Last administered on 02/17/19at 14:53; Admin Dose 4 MG; Start 02/17/19 at 00:30 Metoclopramide HCl (Reglan) 10 mg Q6H PRN IV NAUSEA/VOMITING; Start 02/17/19 at 00:30 Acetaminophen (Tylenol Tab) 650 mg Q6H PRN PO .PAIN 1-3 OR TEMP; Start 02/17/19 at 00:30 Acetaminophen/ Hydrocodone Bitart ([place] (5/325)) 1 tab Q6H PRN PO .MOD PAIN 4- 6 Last administered on 02/18/19at 08:00; Admin Dose 1 TAB; Start 02/17/19 at 00:30 Acetaminophen/ Hydrocodone Bitart ([place] (5/325)) 2 tab Q6H PRN PO .SEVERE PAIN 7-10 Last administered on 02/18/19at 19:17; Admin Dose 2 TAB; Start 02/17/19 at 00:30 Morphine Sulfate (morphine) 2 mg Q4H PRN IV .SEVERE PAIN 7-10 Last administered on 02/17/19at 08:42; Admin Dose 2 MG; Start 02/17/19 at 00:30 Docusate Sodium (Colace) 100 mg Q12H PRN PO .CONSTIPATION Last administered on 02/17/19at 01:07; Admin Dose 100 MG; Start 02/17/19 at 00:30 Magnesium Hydroxide (Milk Of Mag) 30 ml DAILY PRN PO .CONSTIPATION; Start 02/17/19 at 00:30 Heparin Sodium (Porcine) (Heparin (5000 Units/1ml)) 5,000 unit Q12 SC Last administered on 02/18/19at 20:24; Admin Dose 5,000 UNIT; Start 02/17/19 at 09:00 Lorazepam (Ativan) 0.5 mg Q6H PRN IV ANXIETY; Start 02/17/19 at 00:30 Albuterol/ Ipratropium (Duoneb) 3 ml Q4H RESP THERAPY PRN HHN SHORTNESS OF BREATH; Start 02/17/19 at 00:30 Hydralazine HCl (Apresoline) 10 mg Q6H PRN IV ELEVATED BLOOD PRESSURE; Start 02/17/19 at 00:30 Clonidine (Catapres) 0.1 mg Q6H PRN PO ELEVATED BLOOD PRESSURE; Start 02/17/19 at 00:30 Nitroglycerin (Nitroglycerin (Sl Tab) 0.4 Mg) 1 tab Q5M PRN SL ANGINA; Start 02/17/19 at 00:30 Polyethylene Glycol (Miralax) 17 gm BID PO Last administered on 02/18/19at 20:23; Admin Dose 17 GM; Start 02/17/19 at 21:00 Bisacodyl (Dulcolax) 10 mg DAILY PRN PO CONSTIPATION; Start 02/17/19 at 14:30 Methylprednisolone (Medrol Dose Pack) ay 1: 24 mg on day 1, administe... STD DOSE PACK PO ; Start 02/18/19 at 10:30; Stop 02/23/19 at 07:01 Methylprednisolone (Medrol) 4 mg AC BREAKFAST PO ; Start 02/19/19 at 07:00; Stop 02/23/19 at 07:01 Methylprednisolone (Medrol) 4 mg PC LUNCH PO ; Start 02/19/19 at 13:00; Stop 02/21/19 at 13:01 Methylprednisolone (Medrol) 4 mg PC DINNER PO ; Start 02/19/19 at 19:00; Stop 02/20/19 at 19:01 Methylprednisolone (Medrol) 8 mg HS PO ; Start 02/19/19 at 21:00; Stop 02/19/19 at 21:01 Methylprednisolone (Medrol) 4 mg HS PO ; Start 02/20/19 at 21:00; Stop 02/22/19 at 21:01 Famotidine (Pepcid) 20 mg BID PO Last administered on 02/18/19at 20:23; Admin Dose 20 MG; Start 02/18/19 at 11:00 NAVDEEP CRABTREE NP Feb 19, 2019 05:47
[2019-02-19] MEDS: METHYLPREDNISOLONE 4 MG TAB PO SCH ×3 (06:22→18:58)
[2019-02-19 08:15] VITALS: BP 120/62; PULSE 54; RESP 16
[2019-02-19] MEDS: POLYETHYLENE GLYCOL 17 GM PACKET PO SCH ×2 (09:07→20:25)
[2019-02-19] MEDS: FAMOTIDINE 20 MG TAB PO SCH ×2 (09:07→20:22)
[2019-02-19] MEDS: HEPARIN 5,000 UNIT/1 ML VIAL SC SCH ×2 (09:11→20:24)
[2019-02-19 15:10] VITALS: BP 118/57; PULSE 60; RESP 16
[2019-02-19 20:23] VITALS: BP 103/57; PULSE 70; RESP 17
[2019-02-19] MEDS ORDERED: METHYLPREDNISOLONE 4 MG TAB PO SCH (21:00)
[2019-02-20 01:32] VITALS: BP 121/60; PULSE 59; RESP 18
[2019-02-20] MEDS: METHYLPREDNISOLONE 4 MG TAB PO SCH ×3 (07:51→19:07)
[2019-02-20 08:13] VITALS: BP 111/61; PULSE 66; RESP 16
[2019-02-20] MEDS: FAMOTIDINE 20 MG TAB PO SCH ×2 (08:42→20:29)
[2019-02-20] MEDS: POLYETHYLENE GLYCOL 17 GM PACKET PO SCH ×2 (08:42→21:00)
[2019-02-20] MEDS: HEPARIN 5,000 UNIT/1 ML VIAL SC SCH ×2 (08:49→20:30)
--- NOTE | 2019-02-20 10:31 | PN ---
Date/Time of Note Date/Time of Note DATE: 02/20/19 TIME: 10:29 Assessment/Plan VTE Prophylaxis Risk score (from Nsg)>0 risk: 2 SCD applied (from Nsg): Yes Pharmacological prophylaxis: heparin Lines/Catheters IV Catheter Type (from Nrsg): Saline Lock Assessment/Plan Hospital Course SUBJECTIVE: Back pain better controlled. OBJECTIVE: Physical Exam General: Obese, 43 year-old female lying in bed in no apparent distress. HEENT: Normocephalic, atraumatic. Eyes: Anicteric sclerae, conjunctivae clear. ENT: Nasal septum midline, oral mucosa moist. Neck supple. Respiratory: Bilaterally clear breath sounds. No use of accessory muscles of respiration. No adventitious breath sounds. Cardiovascular: S1, S2 heard. Regular rate and rhythm. Abdomen: Soft and nondistended. Diffuse tenderness. Bowel sounds positive in all 4 quadrants. Genitourinary: Deferred. Extremities: No cyanosis, no clubbing, no edema. Peripheral pulses palpable. Neurologic: Cranial nerves II through XII grossly intact. The patient is awake, alert, and oriented. Equal strength in bilateral lower extremities. Skin: Normal skin turgor. No skin rashes. Labs & Vitals per chart ASSESSMENT & PLAN This is a 43-year-old female who denies any significant past medical history who is obese who came to the emergency room with chief complaint of lower back pain with CT of the abdomen and pelvis showing a large disc herniation at L4-L5 with resultant severe central canal stenosis with compression of thecal sac. 1. Low back pain. L4-L5 large disc herniation evident on CT scan. Radiologist suggested moderate to severe central canal stenosis at L4-L5. Status post evaluation by neurosurgery with no evidence of cauda equina syndrome and no evidence of any clinically relevant central canal stenosis. Recommended steroid therapy and physical therapy along with pain control. Continue pain control. 2. Enlarged urinary bladder on imaging studies. Post void residual around 300 mL. Status post Luz catheter insertion that drained only to 250 mL of urine. 3. Obesity. BMI 37 kg/m. Advised weight reduction. 4. Fluids, electrolytes, and nutrition. Low-cholesterol diet. 5. DVT prophylaxis. Subcutaneous heparin. 6. Plan. Continue pain control. Continue Medrol pack. Continue physical therapy. The patient was seen in collaboration with Dr. Amaro. Result Diagram: 02/20/1933 02/20/19532 Results 24hrs Laboratory Tests Test 02/20/19 05:33 White Blood Count 9.7 Red Blood Count 5.10 Hemoglobin 13.7 Hematocrit 41.9 Mean Corpuscular Volume 82.2 Mean Corpuscular Hemoglobin 26.9 L Mean Corpuscular Hemoglobin Concent 32.7 Red Cell Distribution Width 14.6 H Platelet Count 438 H Mean Platelet Volume 10.1 Immature Granulocytes % 0.500 H Neutrophils % 72.7 Lymphocytes % 20.6 Monocytes % 5.5 Eosinophils % 0.1 Basophils % 0.6 Nucleated Red Blood Cells % 0.0 Immature Granulocytes # 0.050 H Neutrophils # 7.0 Lymphocytes # 2.0 Monocytes # 0.5 Eosinophils # 0.0 Basophils # 0.1 Nucleated Red Blood Cells # 0.0 Sodium Level 141 Potassium Level 4.4 Chloride Level 103 Carbon Dioxide Level 27 Anion Gap 11 Blood Urea Nitrogen 14 Creatinine 0.40 L Est Glomerular Filtrat Rate mL/min > 60 Glucose Level 120 Calcium Level 9.5 Phosphorus Level 4.7 Magnesium Level 2.4 Exam/Review of Systems Exam Vitals Vital Signs Date Temp Pulse Resp B/P (MAP) Pulse Ox O2 O2 Flow FiO2 Time Delivery Rate 02/20/19 98.1 66 16 111/61 96 08:13 (78) 02/17/19 Room Air 00:05 Intake and Output 02/19/19 02/19/19 02/20/19 1515:00 23:00 07:00 IntakeIntake Total 800 ml 48 ml BalanceBalance 800 ml 48 ml Results Results 24hrs Laboratory Tests Test 02/20/19 05:33 White Blood Count 9.7 Red Blood Count 5.10 Hemoglobin 13.7 Hematocrit 41.9 Mean Corpuscular Volume 82.2 Mean Corpuscular Hemoglobin 26.9 L Mean Corpuscular Hemoglobin Concent 32.7 Red Cell Distribution Width 14.6 H Platelet Count 438 H Mean Platelet Volume 10.1 Immature Granulocytes % 0.500 H Neutrophils % 72.7 Lymphocytes % 20.6 Monocytes % 5.5 Eosinophils % 0.1 Basophils % 0.6 Nucleated Red Blood Cells % 0.0 Immature Granulocytes # 0.050 H Neutrophils # 7.0 Lymphocytes # 2.0 Monocytes # 0.5 Eosinophils # 0.0 Basophils # 0.1 Nucleated Red Blood Cells # 0.0 Sodium Level 141 Potassium Level 4.4 Chloride Level 103 Carbon Dioxide Level 27 Anion Gap 11 Blood Urea Nitrogen 14 Creatinine 0.40 L Est Glomerular Filtrat Rate mL/min > 60 Glucose Level 120 Calcium Level 9.5 Phosphorus Level 4.7 Magnesium Level 2.4 Medications Medication Current Medications IV Flush (NS 3 ml) 3 ml PER PROTOCOL IV ; Start 02/17/19 at 00:30 Ondansetron HCl (Zofran Inj) 4 mg Q6H PRN IV NAUSEA/VOMITING Last administered on 02/17/19 14:53; Admin Dose 4 MG; Start 02/17/19 at 00:30 Metoclopramide HCl (Reglan) 10 mg Q6H PRN IV NAUSEA/VOMITING; Start 02/17/19 at 00:30 Acetaminophen (Tylenol Tab) 650 mg Q6H PRN PO .PAIN 1-3 OR TEMP; Start 02/17/19 at 00:30 Acetaminophen/ Hydrocodone Bitart ([place] (5/325)) 1 tab Q6H PRN PO .MOD PAIN 4- 6 Last administered on 02/18/19 08:00; Admin Dose 1 TAB; Start 02/17/19 at 00:30 Acetaminophen/ Hydrocodone Bitart ([place] (5/325)) 2 tab Q6H PRN PO .SEVERE PAIN 7-10 Last administered on 02/18/19 19:17; Admin Dose 2 TAB; Start 02/17/19 at 00:30 Morphine Sulfate (morphine) 2 mg Q4H PRN IV .SEVERE PAIN 7-10 Last administered on 02/17/19 08:42; Admin Dose 2 MG; Start 02/17/19 at 00:30 Docusate Sodium (Colace) 100 mg Q12H PRN PO .CONSTIPATION Last administered on 02/17/19 01:07; Admin Dose 100 MG; Start 02/17/19 at 00:30 Magnesium Hydroxide (Milk Of Mag) 30 ml DAILY PRN PO .CONSTIPATION Last administered on 02/19/19 09:11; Admin Dose 30 ML; Start 02/17/19 at 00:30 Heparin Sodium (Porcine) (Heparin (5000 Units/1ml)) 5,000 unit Q12 SC Last administered on 02/20/19 08:49; Admin Dose 5,000 UNIT; Start 02/17/19 at 09:00 Lorazepam (Ativan) 0.5 mg Q6H PRN IV ANXIETY; Start 02/17/19 at 00:30 Albuterol/ Ipratropium (Duoneb) 3 ml Q4H RESP THERAPY PRN HHN SHORTNESS OF BREATH; Start 02/17/19 at 00:30 Hydralazine HCl (Apresoline) 10 mg Q6H PRN IV ELEVATED BLOOD PRESSURE; Start 02/17/19 at 00:30 Clonidine (Catapres) 0.1 mg Q6H PRN PO ELEVATED BLOOD PRESSURE; Start 02/17/19 at 00:30 Nitroglycerin (Nitroglycerin (Sl Tab) 0.4 Mg) 1 tab Q5M PRN SL ANGINA; Start 02/17/19 at 00:30 Polyethylene Glycol (Miralax) 17 gm BID PO Last administered on 02/20/19at 08:4 2; Admin Dose 17 GM; Start 02/17/19 at 21:00 Bisacodyl (Dulcolax) 10 mg DAILY PRN PO CONSTIPATION; Start 02/17/19 at 14:30 Methylprednisolone (Medrol Dose Pack) ay 1: 24 mg on day 1, administe... STD DOSE PACK PO ; Start 02/18/19 at 10:30; Stop 02/23/19 at 07:01 Methylprednisolone (Medrol) 4 mg AC BREAKFAST PO Last administered on 02/20/19at 07:51; Admin Dose 4 MG; Start 02/19/19 at 07:00; Stop 02/23/19 at 07:01 Methylprednisolone (Medrol) 4 mg PC LUNCH PO Last administered on 02/19/19at 13:07; Admin Dose 4 MG; Start 02/19/19 at 13:00; Stop 02/21/19 at 13:01 Methylprednisolone (Medrol) 4 mg PC DINNER PO Last administered on 02/19/19at 18:58; Admin Dose 4 MG; Start 02/19/19 at 19:00; Stop 02/20/19 at 19:01 Methylprednisolone (Medrol) 4 mg HS PO ; Start 02/20/19 at 21:00; Stop 02/22/19 at 21:01 Famotidine (Pepcid) 20 mg BID PO Last administered on 02/20/19at 08:42; Admin Dose 20 MG; Start 02/18/19 at 11:00 NAVDEEP CRABTREE NP Feb 20, 2019 10:31
[2019-02-20 14:33] VITALS: BP 109/56; PULSE 65; RESP 18
[2019-02-20 19:43] VITALS: BP 153/74; PULSE 81; RESP 18
[2019-02-20 20:08] VITALS: BP 109/58; PULSE 63; RESP 19
[2019-02-20] MEDS ORDERED: METHYLPREDNISOLONE 4 MG TAB PO SCH (21:00)
[2019-02-21 02:01] VITALS: BP 116/66; PULSE 55; RESP 17
[2019-02-21 07:42] VITALS: BP 112/59; PULSE 64; RESP 20
[2019-02-21] MEDS: POLYETHYLENE GLYCOL 17 GM PACKET PO SCH (09:10)
[2019-02-21] MEDS: METHYLPREDNISOLONE 4 MG TAB PO SCH ×2 (09:10→13:20)
[2019-02-21] MEDS: FAMOTIDINE 20 MG TAB PO SCH (09:10)
[2019-02-21] MEDS: HEPARIN 5,000 UNIT/1 ML VIAL SC SCH (09:20)
[2019-02-21] MEDS ORDERED: FAMO20TA18 PO (13:28)
[2019-02-21] MEDS ORDERED: PRED20TA PO (13:28)
--- NOTE | 2019-02-21 13:30 | PDOCDIS ---
Discharge Instructions CONDITION [id number] Patient Condition: [id number] Guarded HOME CARE INSTRUCTIONS: [id number] Diet Instructions: [id number] Regular ACTIVITY: [id number] Activity Restrictions: [id number] Slowly Increase Activity Rest between Activity FOLLOW UP/APPOINTMENTS Follow-up Plan Humberto Field MD Specialty: Neurosurgery Office Address [address] [place] [id number] Office OTHER ORDERS: Other Orders: 1. Take medications as per prescription. 2. Take a regular diet. 3. Resume activities as tolerated. 4. Follow-up with outpatient neurosurgery (Dr. Field) in 2 weeks. If unable to follow-up with the given physician, please have your insurance arrange for outpatient neurosurgery follow-up. 5. Please go to the nearest emergency room if you have worsening weakness of bilateral lower extremities, incontinence of urine or stool, or any other unusual signs/symptoms. NAVDEEP CRABTREE NP Feb 21, 2019 13:30
--- NOTE | 2019-02-21 14:19 | DS ---
Date/Time of Note Date/Time of Note DATE: 02/21/19 TIME: 14:14 Discharge Summary Admission/Discharge Info Admit Date/Time Feb 16, 2019 at 23:29 Discharge Date/Time Discharge Diagnosis 1. Herniated L4/5 paracentral disc causing neuroforaminal stenosis. 2. Obesity. Patient Condition: Stable Consults 1. Humberto Field MD, Neurosurgery. Procedures CT Abdomen & Pelvis IMPRESSION: 1. Two cysts in the left adnexa measuring up to 5 cm. The appearance may be due to cystic enlargement of the left ovary. Recommend further evaluation with pelvic ultrasound. 2. Uterus is anteverted and the uterine fundus is tethered to the anterior abdominal wall. 3. Mild hepatic steatosis. Recommend correlation with liver tests to evaluate for potential steatohepatitis. 4. Degenerative disc disease in the lower lumbar spine with a large disc herniation at L4-5 that results in severe central canal stenosis with compression of the thecal sac. Suggest further evaluation with MRI of the lumbar spine. Lumbar Spine MRI IMPRESSION: 1. No acute fractures or traumatic subluxations. 2. 8 mm large right subarticular recess disc extrusion at L4-5 with moderate to severe central canal stenosis and severe right subarticular recess stenosis. Recommend correlation with a right L5 radiculopathy. 3. 6 mm left subarticular recess disc protrusion and annular tear at L5-S1 with severe left subarticular recess stenosis. Recommend correlation with the left S1 radiculopathy. 4. Multilevel broad-based bulges at the L2-3 through L5-S1 levels with moderate to severe central canal stenosis at L4-5 and mild at L5-S1. 5. Multilevel neural foraminal stenosis at the L4-5 and L5-S1 levels and correlate with radiculopathy as noted. 6. Multilevel facet ligamentum osteoarthropathy. 7. Markedly distended, neurogenic appearing urinary bladder. Hx of Present Illness This is a 43-year-old female who denies any significant past medical history who is obese who came to the emergency room with chief complaint of lower back pain with CT of the abdomen and pelvis showing a large disc herniation at L4-L5 with resultant severe central canal stenosis with compression of thecal sac. Hospital Course The patient was admitted to inpatient setting. The patient was started on appropriate pain control. Physical therapy evaluation was ordered. The patient underwent a lumbar spine MRI that was showing disc extrusion at L4-L5 with a moderate to severe central canal stenosis as per the radiologist report along with the possibility of underlying neurogenic bladder. Therefore, an emergent neurosurgery consult was called and the patient was evaluated for possibility of cauda equina syndrome. As per the neurosurgeon, the patient did not have any evidence of cauda equina syndrome and that she did not have any evidence of any clinically relevant central canal stenosis. However, the patient did have evidence of L4-L5 disc herniation. Therefore, the patient was started on Medrol Dosepak with improvement in the patient's pain. The patient did not have any lower extremity weakness or sensory loss. Since the patient was noticed to have enlarged and full bladder on the imaging study, the patient had a Luz catheter inserted with drainage of 250 mL urine. The patient did not have any evidence of urinary retention or neurogenic bladder. Therefore, the patient's Luz catheter was discontinued. The patient has no other significant comorbidities. The patient was noticed to be obese w ith a BMI of 37 kg/m. The patient was advised on weight reduction. The patient underwent multiple physical therapy sessions with improvement in the patient's mobility. The patient probably had problems with mobility because of her underlying lower back pain. Upon discharge, the patient will ideally benefit from home health for home physical therapy evaluation. However, because of insurance insurance constraints, this was unable to be ordered. The patient will follow-up with the neurosurgeon who evaluated her here. The patient was instructed if she is unable to follow-up with his neurosurgeon to work with insurance to have an outpatient neurosurgery follow-up. Also a case management order was put in for arranging outpatient neurosurgery follow-up with the insurance. The patient had a stable hospital course. Discharge Instructions 1. Take medications as per prescription. 2. Take a regular diet. 3. Resume activities as tolerated. 4. Follow-up with outpatient neurosurgery (Dr. Field) in 2 weeks. If unable to follow-up with the given physician, please have your insurance arrange for outpatient neurosurgery follow-up. 5. Please go to the nearest emergency room if you have worsening weakness of bilateral lower extremities, incontinence of urine or stool, or any other unusual signs/symptoms. The patient verbalized understanding of her discharge instructions. At this time I would like to thank Dr. Field for seeing the patient and providing clinical recommendations. The patient was seen in collaboration with Dr. Amaro. Home Meds Active Scripts Famotidine* (Famotidine*) 20 Mg Tablet, 20 MG PO BID for 7 Days, #14 TAB Prov:NAVDEEP CRABTREE NP 02/21/19 Follow-up Plan Humberto Field MD Specialty: Neurosurgery Office Address [address] [address] Office Primary Care Provider Care Physician No Primary Time spent on discharge: > 30 minutes Pending Labs Laboratory Tests Test 02/21/19 05:46 02/21/19 05:47 White Blood Count 10.3 10^3/ul (4.8-10.8) Red Blood Count 5.12 10^6/ul (4.20-5.40) Hemoglobin 13.8 g/dl (12.0-16.0) Hematocrit 42.5 % (37.0-47.0) Mean Corpuscular Volume 83.0 fl (82.0-101.0) Mean Corpuscular Hemoglobin 27.0 pg (29.0-33.0) Mean Corpuscular 32.5 g/dl (32.0-37.0) Hemoglobin Concent Red Cell Distribution Width 14.4 % (11.5-14.5) Platelet Count 452 10^3/UL (140-415) Mean Platelet Volume 9.8 fl (7.4-10.4) Immature Granulocytes % 0.800 % (0.001-0.429) Neutrophils % 66.5 % (39.0-77.0) Lymphocytes % 24.1 % (15.0-51.0) Monocytes % 7.4 % (0.0-11.0) Eosinophils % 0.2 % (0.0-7.0) Basophils % 1.0 % (0.0-2.0) Nucleated Red Blood Cells % 0.0 /100WBC (0.0-0.0) Immature Granulocytes # 0.080 10^3/ul (0.0-0.031) Neutrophils # 6.8 10^3/ul (1.6-7.5) Lymphocytes # 2.5 10^3/ul (0.8-2.9) Monocytes # 0.8 10^3/ul (0.3-0.9) Eosinophils # 0.0 10^3/ul (0.0-0.5) Basophils # 0.1 10^3/ul (0.0-0.1) Nucleated Red Blood Cells # 0.0 10^3/ul (0.0-0.0) Sodium Level 141 mmol/L (135-144) Potassium Level 4.6 mmol/L (3.5-5.1) Chloride Level 103 mmol/L (97-110) Carbon Dioxide Level 28 mmol/L (21-31) Anion Gap 10 (5-13) Blood Urea Nitrogen 16 mg/dl (7-20) Creatinine 0.41 mg/dl (0.44-1.00) Est Glomerular Filtrat > 60 mL/min (>60) Rate mL/min Glucose Level 113 mg/dl (70-220) Calcium Level 9.4 mg/dl (8.4-10.2) Phosphorus Level 4.7 mg/dl (2.5-4.9) Magnesium Level 2.4 mg/dl (1.7-2.5) NAVDEEP CRABTREE NP Feb 21, 2019 14:19
[2019-02-21 15:02] VITALS: BP 102/59; PULSE 69; RESP 20
== END 2019-02-21 17:35 | disposition home or self-care (01) | DRG 552 ==
LOC: E/R 19:19 → 2NE 23:29
PROVIDERS: ADMIT Hospitalist; ATTEND Hospitalist
DX: M51.26 Other intervertebral disc displacement, lumbar region (principal); M48.061 Spinal stenosis, lumbar region without neurogenic claudication; E66.9 Obesity, unspecified; Z68.36 Body mass index [BMI] 36.0-36.9, adult; N31.9 Neuromuscular dysfunction of bladder, unspecified
CPT/HCPCS: 36415; 72149; 74176; 80048; 80053; 80061; 81001; 81003; 81025; 83036; 83735; 84100; 84439; 84443; 85025; 96374; 96375; 96376; 97110; 97116; 97162; 97165; 97530; 97535; J1170; J1644; J2270; J2405; J7030; J7509